=== PATIENT | female | born 1945 | race Caucasian/White ===

== ENCOUNTER 2018-05-11 06:29 | Day surgery (SDC) | payer OTHER ==
[2018-05-11] MEDS ORDERED: PROPOFOL 200 MG INJ (07:00)
[2018-05-11] MEDS ORDERED: LIDOCAINE 2% (SDV) 5 ML INJ (07:00)
[2018-05-11] MEDS: MOXIFLOXACIN 0.5% 3 ML OPH OPER (08:03)
[2018-05-11] MEDS: TROPICAMIDE 1% 3 ML OPH OPER (08:04)
[2018-05-11] MEDS: CYCLOPENTOLATE/PHENYLEPH 2 ML OPH OPER (08:04)
[2018-05-11] MEDS: DICLOFENAC 0.1% 2.5 ML OPH OPER (08:04)
[2018-05-11] MEDS: SOD CHLORIDE 0.9% 1,000 ML IV (08:05)
[2018-05-11] MEDS ORDERED: FENTAnyl 50 MCG/ML VIAL IV (09:30)
[2018-05-11] MEDS: DEXAMETHASONE 4 MG/ML 1 ML INJ (09:32)
[2018-05-11] MEDS: CARBACHOL 0.01% 1.5 ML OPH INJ (09:32)
[2018-05-11] MEDS: CEFAZOLIN 1 GM INJ (09:32)
[2018-05-11] MEDS ORDERED: LIDOCAINE 4% (MPF) 5 ML INJ (10:22)
[2018-05-11] MEDS ORDERED: NA HYALURONATE/CHONDROITIN 0.5 ML SYG (10:22)
== END 2018-05-11 11:44 | disposition home or self-care (01) ==
LOC: SDS 06:29
DX: H25.11 Age-related nuclear cataract, right eye (principal); I10 Essential (primary) hypertension; E78.5 Hyperlipidemia, unspecified
CPT/HCPCS: 66984